=== PATIENT | male | born 1965 | race Caucasian/White ===

== ENCOUNTER 2025-09-02 22:43 | Inpatient (IN) | payer OTHER ==
[~2025-09-02] VITALS: Ht 177.8 cm; Wt 97.5 kg
[2025-09-02 22:46] VITALS: O2SAT 96
[2025-09-02] MEDS: MORPHINE SULFATE 4 MG/ML INJ (FOR IV/IM USE) IV ONE (23:39)
[2025-09-02] MEDS: ONDANSETRON HCL 4MG/2ML INJ IV ONE (23:39)
[2025-09-02] MEDS: SODIUM CHLORIDE 0.9% 1,000 ML IV ONE (23:39)
[2025-09-02 23:46] LABS: BASOPHILS % 0.3 % (0.0-2.0); EOSINOPHILS % 0.2 % (0.0-5.0); HEMATOCRIT. 52.5 % (42.0-52.0); HEMOGLOBIN. 16.9 g/dL (14.0-18.0); LYMPHOCYTES % 6.8 % (20.0-50.0); MEAN PLATELET VOLUME 7.9 fl (7.4-10.4); MONOCYTES % 4.3 % (2.0-8.0); NEUTROPHILS % 88.4 % (40.0-76.0); PLATELET 266 x1000/uL (130-400); RED BLOOD CELL COUNT 6.35 mill/uL (4.7-6.1); RED CELL DISTRIBUTION WIDTH 16.1 % (11.6-14.6)
[2025-09-02 23:59] LABS: CREATININE 1.5 mg/dL (0.6-1.3); PROTEIN TOTAL 7.3 g/dL (6.0-8.3); UREA NITROGEN BLOOD 15 mg/dL (9-23)
[2025-09-03] LABS: ASPARTATE AMINOTRANSFERASE 21 IU/L (<34); TROPONIN I HIGH SENSITIVITY < 4 ng/L (3.0-53)
[2025-09-03 00:01] LABS: BILIRUBIN DIRECT 0.2 mg/dL (<=3.0); BILIRUBIN TOTAL 0.6 mg/dL (0.1-1.0)
[2025-09-03 00:22] LABS: CLARITY URINE CLEAR (CLEAR); COLOR URINE DARK YELLOW (YELLOW); GLUCOSE URINE NEGATIVE (NEGATIVE); KETONES URINE NEGATIVE (NEGATIVE); LEUKOCYTE ESTERASE URINE NEGATIVE (NEGATIVE); NITRITE URINE NEGATIVE (NEGATIVE); OCCULT BLOOD URINE NEGATIVE (NEGATIVE); PH URINE 5.5 (4.5-8.0); PROTEIN URINE 2+ (NEGATIVE); SPECIFIC GRAVITY URINE 1.036 (1.005-1.030); UROBILINOGEN URINE 1.0 E.U./dL (0.2-1.0)
[2025-09-03] MEDS: MORPHINE SULFATE 4 MG/ML INJ (FOR IV/IM USE) IV NR (00:51)
[2025-09-03 01:04] LABS: BACTERIA URINE NONE SEEN; RBC URINE NONE SEEN /hpf (0-2); SQUAMOUS EPITHELIAL CELL URINE NONE SEEN /lpf (RARE/1+); WBC URINE NONE SEEN /hpf (0-2)
[2025-09-03] MEDS: SODIUM CHLORIDE 0.9% 1,000 ML IV ONE (02:08)
[2025-09-03 02:15] LABS: TROPONIN I HIGH SENSITIVITY 4 ng/L (3.0-53)
[2025-09-03] MEDS: IOHEXOL-300 100 ML BOTTLE ONE (06:05)
[2025-09-03] MEDS: LORAZEPAM 2MG/ML UD SYRINGE IV NR (06:36)
[2025-09-03] MEDS ORDERED: ACETAMINOPHEN 325MG TABLET PO PRN ×2 (10:15)
[2025-09-03] MEDS ORDERED: MAGNESIUM/ALUMINUM HYDROXIDE/SIMETHICONE 30ML UDC PO PRN (10:15)
[2025-09-03] MEDS ORDERED: ONDANSETRON HCL 4MG/2ML INJ IV PRN (10:15)
[2025-09-03] MEDS ORDERED: DOCUSATE SODIUM 100MG CAPSULE PO PRN (10:15)
[2025-09-03] MEDS ORDERED: IPRATROPIUM/ALBUTEROL 0.5-3(2.5)MG/3ML NEB HHN PRN (10:15)
[2025-09-03] MEDS ORDERED: GUAIFENESIN 200MG/10ML SUGAR FREE UDC PO PRN (10:15)
[2025-09-03] MEDS ORDERED: CLONIDINE 0.1MG TABLET PO PRN (10:15)
[2025-09-03] MEDS ORDERED: NA PHOS,M-B/NA PHOS,DI-BA ENEMA 118ML PR PRN (10:15)
[2025-09-03] MEDS ORDERED: IBUPROFEN 600MG TABLET PO PRN (11:00)
[2025-09-03] MEDS: FAMOTIDINE 20MG/2ML VIAL IV SCH (11:17)
[2025-09-03] MEDS: DEXT 5%/LACTATED RINGERS 1,000 ML IV SCH (11:18)
[2025-09-03] MEDS: BLOOD SUGAR DIAGNOSTIC STRIP TEST SCH (11:46)
[2025-09-03 12:00] VITALS: BP 130/73; PULSE 91; RESP 20; TEMP 37.4; O2SAT 95
[2025-09-03] MEDS: INSULIN LISPRO 100 UNITS/ML SUBCUT SCH (12:50)
[2025-09-03 16:00] VITALS: BP 124/77; PULSE 98; RESP 20; TEMP 37.4; O2SAT 95
[2025-09-03 16:19] VITALS: BP 130/73; PULSE 91; RESP 20; TEMP 37.4744
[2025-09-03 17:43] LABS: SODIUM URINE RANDOM 137.0 mEq/L
[2025-09-03 17:49] LABS: *AMPHETAMINES SCREEN URINE NEGATIVE (NEGATIVE); *BARBITURATES SCREEN URINE NEGATIVE (NEGATIVE); *BENZODIAZEPINES SCREEN URINE NEGATIVE (NEGATIVE)
[2025-09-03 17:50] LABS: *COCAINE SCREEN URINE NEGATIVE (NEGATIVE); CANNABINOID URINE SCREEN NEGATIVE (NEGATIVE); ECSTASY MDMA SCREEN URINE NEGATIVE (NEGATIVE); METHADONE URINE SCREEN NEGATIVE (NEGATIVE); OPIATES URINE SCREEN PRESUMPTIVE POSITIVE (NEGATIVE); PHENCYCLIDINE URINE SCREEN NEGATIVE (NEGATIVE)
[2025-09-03 17:51] LABS: CREATININE URINE RANDOM 179.2 mg/dL
[2025-09-03 20:00] VITALS: BP 107/65; PULSE 85; RESP 18; TEMP 36.2; O2SAT 98
[2025-09-04] VITALS: BP 117/67; PULSE 92; RESP 18; TEMP 36.4; O2SAT 99
[2025-09-04 04:00] VITALS: BP 103/52; PULSE 75; RESP 18; TEMP 36.4; O2SAT 98
[2025-09-04 08:00] VITALS: BP 119/80; PULSE 72; RESP 18; TEMP 36.7; O2SAT 96
[2025-09-04 08:05] LABS: BASOPHILS % 0.2 % (0.0-2.0); EOSINOPHILS % 6.5 % (0.0-5.0); HEMATOCRIT. 49.2 % (42.0-52.0); HEMOGLOBIN. 15.7 g/dL (14.0-18.0); LYMPHOCYTES % 21.5 % (20.0-50.0); MEAN PLATELET VOLUME 8.2 fl (7.4-10.4); MONOCYTES % 12.5 % (2.0-8.0); NEUTROPHILS % 59.3 % (40.0-76.0); PLATELET 235 x1000/uL (130-400); RED BLOOD CELL COUNT 5.94 mill/uL (4.7-6.1); RED CELL DISTRIBUTION WIDTH 16.4 % (11.6-14.6)
[2025-09-04 08:19] LABS: PROTEIN TOTAL 6.5 g/dL (6.0-8.3)
[2025-09-04 08:20] LABS: ASPARTATE AMINOTRANSFERASE 16 IU/L (<34); CREATININE 1.4 mg/dL (0.6-1.3)
[2025-09-04 08:21] LABS: BILIRUBIN DIRECT 0.3 mg/dL (<=3.0); BILIRUBIN TOTAL 0.8 mg/dL (0.1-1.0); TRIGLYCERIDE 85.0 mg/dL (0-150); UREA NITROGEN BLOOD 9.0 mg/dL (9-23)
[2025-09-04 08:22] LABS: LDL CHOLESTEROL 38.0 mg/dL (5-100)
[2025-09-04 12:00] VITALS: BP 126/88; PULSE 69; RESP 17; TEMP 36.5; O2SAT 98
[2025-09-04] MEDS ORDERED: BISACODYL 5MG TABLET PO PRN (12:00)
[2025-09-04] MEDS: NA PHOS,M-B/NA PHOS,DI-BA ENEMA 118ML PR SCH (13:00)
[2025-09-04] MEDS: DEXTROSE 50% WATER 50ML SYRINGE IV PRN (13:13)
[2025-09-04 16:00] VITALS: BP 115/79; PULSE 68; RESP 17; TEMP 36.6; O2SAT 98
[2025-09-04 20:00] VITALS: BP 105/60; PULSE 64; RESP 18; TEMP 36.4; O2SAT 89
== END 2025-09-04 22:45 | disposition short-term general hospital (02) | DRG 392 ==
LOC: ER 22:43 → 6EST 09-03 01:39 → EDBEDREQTM 09-03 01:42 → EDBEDREQ 09-03 01:42 → EDBEDREQDT 09-03 01:42 → ENRESERV 09-03 07:00
PROVIDERS: ADMIT Internal Medicine; ATTEND Internal Medicine
DX: K52.9 Noninfective gastroenteritis and colitis, unspecified (principal); K56.699 Other intestinal obstruction unspecified as to partial versus complete obstruction; N17.9 Acute kidney failure, unspecified; N18.9 Chronic kidney disease, unspecified; E11.65 Type 2 diabetes mellitus with hyperglycemia; M48.56XA Collapsed vertebra, not elsewhere classified, lumbar region, initial encounter for fracture; F11.90 Opioid use, unspecified, uncomplicated; K57.30 Diverticulosis of large intestine without perforation or abscess without bleeding; E78.5 Hyperlipidemia, unspecified; M48.061 Spinal stenosis, lumbar region without neurogenic claudication; Z79.899 Other long term (current) drug therapy
CPT/HCPCS: 36415; 71045; 74018; 74177; 80048; 80061; 80076; 80305; 81003; 82570; 82962; 83036; 83605; 84145; 84300; 84443; 84484; 85025; 93005; 93970; 96361; 96374; 96375; 99291; J1308; J2060; J2270; J2405; J7030; J7121; Q9967